=== PATIENT | male | born 1950 | race Caucasian/White ===

== ENCOUNTER 2019-01-25 08:50 | Outpatient (CLI) | payer BC ==
--- NOTE | 2019-01-25 10:45 | XRAY Report ---
Reason: PERSISTENT L HIP PAIN Procedure Date: 01/25/2019 Accession Number: [id number] / [id number] Procedure: XRN - Hip w/Pelvis 2-3V LT CPT Code: FULL RESULT: EXAM: LEFT HIP RADIOGRAPHY EXAM DATE: 01/25/2019 09:06 AM. CLINICAL HISTORY: Persistent left hip pain. COMPARISON: None. TECHNIQUE: 3 views. FINDINGS: Bones: Normal. No fractures or bone lesion. Joints: There is mild to moderate joint space loss with sclerosis and marginal osteophytosis, mildly greater on the left when compared to the right. No subluxation. Soft Tissues: Normal. No soft tissue swelling. IMPRESSION: Moderate left hip degenerative changes. RADIA
== END 2019-01-25 08:51 | disposition home or self-care (01) ==
LOC: DI.N 08:50
PROVIDERS: ATTEND Internal Medicine
DX: M16.12 Unilateral primary osteoarthritis, left hip (principal)

== ENCOUNTER 2019-10-09 11:08 | Outpatient (CLI) | payer BC ==
--- NOTE | 2019-10-09 12:57 | SLEEP CARE CONSULTATION ---
Information from patient questionnaire entered by Elidia Orozco. I have reviewed and concur with the information entered by Elidia Orozco. This document represents the service I personally performed and the decisions made by me, Austyn Ferrell MD, [facility]. History of Present Illness Reason for Visit: New patient, Previously diagnosed sleep apnea, sleep apnea on CPAP therapy Chief Complaint: reports: Other (new prescription for supplies) Duration of Symptoms: 10 years Usual bedtime: [id number] Time it takes to fall asleep: quickly Snores at night: Yes Observed to quit breathing while asleep: No Sleeps alone due to snoring: Yes Number of times waking at night: 1-3 Reasons for waking at night: reports: Bathroom Toss, Turn, or Twitch while sleeping: Yes Recalls having dreams: Yes Usually gets out of bed at: [id number] Feels refreshed in the morning: No Morning headache: No Sleepy or fatigued during the day: Yes Ever fallen asleep while driving: No Takes day naps: Yes Dreams during day naps: No Prior sleep studies: Yes Year and Where: 2009 Sleep Lab [facility] Additional HPI information: I had the pleasure of seeing Mr. Gregg today regarding obstructive sleep apnea. As you know, he is a 65 year old gentleman who was diagnosed with mild obstructive sleep apnea (AHI was 8) in [place], [place] in 2009. He was here in 2016 and I ordered him a new machine set 7-10 cmH2O. He continues to use it every night but not all night. The compliance data show usage in 178 out of the past 180 nights, averaging 3.6 hours a night. The residual AHI is 2.9 and average air leak is 16 seconds a night. He wears a Respironics DreamWear nasal cushion mask. He thinks the treatment helps with his headache in the morning. [facility] is his durable medical supplier but has not gotten supplies for a while and would like to switch to a different company. CPAP Compliance Data - Data Reviewed with Patient Average duration of nightly device use: 3h 39m Compliance rate %: 37.2 Current pressure setting (cmH2O): 7-10 Humidity settin Heated hose settin Average residual AHI: 2.9 Average large leak: 16s Subjective Initial Gage Sleepiness Scale score: 7 Past Medical History Past Medical History: reports: Arrythmia, Other (parkinsons, pacemaker) Social History The patient's occupation is retired. Patient is and lives in [place]. Have you smoked in the past 12 months: No Alcohol use: Yes Alcohol amount and frequency: 1, 1-2 weeks Caffeine use: Yes Caffeine amount and frequency: 1-2 cups/daily Family History Family history of sleep disordered breathing: No Allergies and Home Medications Drug allergies reviewed: Yes (NKDA) Home medication list reviewed: Yes (Ropinirole, metformin, simvastatin, melatonin, vitamins) Review of Systems Weight gain over past 5 years: 20 Cardiovascular: reports: other (pacemaker) Respiratory: denies: shortness of breath, wheeze, sputum production, chronic cough, other Gastrointestinal: denies: heartburn, difficulty swallowing, nausea, vomitting, diarrhea, abdominal pain, other Urinary: denies: incontinence, frequency, urgency, impotence, other Neurological: reports: other (parkinsons) Psychiatric: denies: Attention Deficit Hyperactivity, anxiety, depression, mood disorder, claustrophobia, other Ear/Nose/Throat: denies: nasal congestion, sinus problems, nose bleeds, dry mouth/throat, hoarseness, injury to nose, tonsillectomy, wisdom teeth removed, other Endocrine: denies: thyroid disease, history of goiter, sluggishness, too hot or cold, excessive thirst, increased appetite, increased urination, unexplained weakness, other Musculoskeletal: reports: other (hip replacement) Immunologic: denies: sneezing, rash, itching, allergies to food or environment, other Physical Exam Height: 6 ft 4 in Weight: 245 lb (Physical exam is deferred due to the Coronavirus epidemic) Body Mass Index: 29.8 BMI Classification: Overweight Impression and Plan IMPRESSION: 1. Obstructive Sleep Apnea-Hypopnea Syndrome, mild, as previously diagnosed. The patient has fairly good treatment compliance. The effectiveness of the treatment is unknown. His machine is old enough to be replaced. He should also try newer nasal pillows and masks. The patient would like to switch durable medical equipment supplier. He would like to try [facility] in [place], [place]. Plan: 1. Prescription made for supplies so that he may switch durable medical supplier. 2. Order a home sleep apnea test (HSAT) to see if he still has the mild sleep- disordered breathing. 3. Attempt to some lose weight. 4. Return for follow up after the test. I spent 100% of this visit face to face with the patient with greater than 50% of this was spent time counseling the patient and coordination of care.
== END 2019-10-09 11:09 | disposition home or self-care (01) ==
LOC: SC 11:08
PROVIDERS: ATTEND Internal Medicine Pulmonary Disease
DX: G47.33 Obstructive sleep apnea (adult) (pediatric) (principal); E66.3 Overweight; Z68.29 Body mass index [BMI] 29.0-29.9, adult
CPT/HCPCS: 99203; 99212

== ENCOUNTER 2019-10-20 19:30 | Outpatient (CLI) | payer BC | END 2019-10-20 23:59 | LOC: SC 19:30 | PROVIDERS: ATTEND Internal Medicine Pulmonary Disease | DX: G47.33 Obstructive sleep apnea (adult) (pediatric) (principal) | CPT/HCPCS: 95806 ==

== ENCOUNTER 2019-11-14 16:24 | Outpatient (CLI) | payer BC ==
--- NOTE | 2019-11-14 12:17 | SLEEP CARE CONSULTATION ---
Information from patient questionnaire entered by Elidia Orozco. I have reviewed and concur with the information entered by Elidia Orozco. This document represents the service I personally performed and the decisions made by me, Mariajose Lopez RN, MSN, [employer]. History of Present Illness Service Date and Time: 11/14/2019 1100 Initial [place] Sleepiness Scale score: 7 Additional HPI information: LEONID GREGG returns via telemed visit for follow up and results of the recently performed home sleep study. I reviewed the sleep study results and then explained the pathophysiology behind obstructive sleep apnea. We then spent quite a bit of time discussing different treatment options. For mild obstructive sleep apnea, surgery and oral appliance are alternatives to nasal CPAP therapy but in moderate or severe cases, nasal CPAP is the most effective and reliable treatment. Because apnea is primarily in supine position, then positional management therapy could be effective but due to his arrhythmia, CPAP is the best method of treatment. I reviewed the impact of weight changes on sleep apnea and strongly recommended losing weight. After some discussion, the patient opted to continue with the nasal CPAP therapy.Patient is currently using CPAP at [id number]. No compliance data available at this visit. Review of sleep history Patient sleeps well for 3-4 hours but has difficulty returning to sleep with CPAP as partially rested. He is more aware of the headgear and air breathing but not uncomfortable just makes it hard to fall back to sleep. In addition the hose gets in way of sleep as he is tossing and turning to try to get comfortable to sleep. He will then remove mask so can fall back to sleep. He wears Resmed nasal mask with headgear on top of head. He just updated his mask cushions today with transfer visit to [facility]. ] Sleep Study - Results Polysomnography/Home Sleep Study results: SLEEP TIME AND EFFICIENCY: The sleep study recording began at 11:40:49 PM and ended at 05:29:10 AM. Total recording time was 348.4 minutes. The total sleep time was 308.5 minutes. The sleep efficiency was 88.6 percent. The patient spent 153.4 minutes supine, and spent 155.1 minutes non-supine. The patients own estimate of sleep time was 5.00 hours. RESPIRATORY DATA: The AHI in this report is indexed to sleep time based on actigraphy. The AASM defines this as RENNY. The AHI on this type 3 Home Sleep Study may understate the AHI determined on a type 1 or 2 study, since EEG is not monitored resulting in the inability to score non-desaturating hypopneas. Based on 4% Calculation: The AHI4% calculation of 23.5 per hour of recording time was based on a total of 115 scored apneas and 6 scored hypopneas with 4% desaturations. Supine AHI4%: 44.6 per hour. Non-supine AHI4%: 2.7 per hour. Oxygen Summary: Patient's baseline O2 saturation was 98.2 %. The patient spent 0.1 minutes at an oxygen saturation less than 90%, and 0.0 minutes less than 85%. The desaturation index was 2.3 events per hour sleep time. The lowest saturation was 80.7 %. SNORING: The percent of the study time spent snoring was 4.4 %. The Snoring Count was 452 . The Snoring Index was Patient Name: Leonid Gregg Study Date: 10/20/2019 : 1950 Page 2 of 7 87.9 . PULSE RATE REVIEW: The mean heart rate was 61 beats per minute. The rate ranged from a low of 51 to a high of 90 beats per minute. DIAGNOSIS CODE: Ostructive sleep apnea G47.33, moderate, occurring almost exclusively during supine sleep. Milddesaturations were noted. Allergies and Home Medications Home medication list reviewed: Yes (no changes) Review of Systems Review of systems same as previous: Yes Physical Exam Height: 6 ft 4 in Weight: 245 lb (home scale) Body Mass Index: 29.8 BMI Classification: Overweight Impression and Plan 1. Obstructive Sleep Apnea-Hypopnea Syndrome, moderate, with lowest oxygen saturation of 80.7%. As reviewed in patient consultation visit in October, patient had a HST to evaluate apnea severity after gaining weight of 25 pounds. He was originally diagnosed in 2009 in [place] with mild apnea. I explained how his weight gain has increased his apnea severity and how it can also affect his CPAP pressure requirements. No compliance report was available for this visit. Currently patient is using CPAP nightly but only for about 3.6 hours or so a night. He states he is able to go to sleep initially when he starts his CPAP use but after waking in a few hours to use the bathroom, he is unable to return to sleep with his CPAP so will take it off. He also takes Melatonin 3mg at HS. Further questioning revealed difficulty returning to sleep he felt was due to feeling somewhat rested now and increased awareness of the CPAP headgear and air pressure. Though this was not uncomfortable just bothersome. In addition, the hose gets in way of sleep as he tosses and turns to get comfortable. Thus I advised him to consider use of a hose villela that can be bought online with rationale of how it is used and benefit. In addition, I explained the importance of using his CPAP all through the night to obtain maximum benefit of treatment such as improving sleep quality and refreshment as well as reducing health risks associated with untreated or not adequately treated apnea such as hypertension, cardiac arrhythmia, heart disease and stroke. I will have him complete a sleep diary to see what else might be affecting his sleep with CPAP and follow up in one month. The visit type will be dependent upon recommendations to reduce risk of COVID virus exposure. Until then he will try the above measures discussed. He states he will also turn try harder to return to sleep with CPAP in place. I also advised to consider some deep breathing exercises to help him relax to return to sleep. If unable to sleep with CPAP the remainder of the night, he is advised to avoid supine sleep with pillow positioning as his apnea is severe in supine position. Copy of his sleep study and the 2 week sleep diary will be sent to patient. * Continue Nasal auto CPAP therapy, pressure at 7-10 cm H2O. * Implement measures to return to sleep. * Use CPAP with all sleep. * complete 2 week sleep diary. * Schedule follow up in one month. Visit Type: Telehealth Phone (to minimize risk of COVOD-19 exposure, the patient agreed to a telehealth phone visit and to bill his insurance for the visit.) Other Participants: Spouse/Significant Other Location of Provider: Home Patient agrees and consents to this telehealth visit type: Yes Time Spent with Patient (minutes): 30 Provider Statement: I spent 100% of the Telehealth Phone Call with the patient with greater than 50% spent counseling the patient and coordination of care.
== END 2019-11-14 16:25 | disposition home or self-care (01) ==
LOC: SC 16:24
PROVIDERS: ATTEND Nurse Practitioner Family
DX: G47.33 Obstructive sleep apnea (adult) (pediatric) (principal); E66.3 Overweight; Z68.29 Body mass index [BMI] 29.0-29.9, adult

== ENCOUNTER 2019-12-20 16:31 | Outpatient (CLI) | payer BC ==
--- NOTE | 2019-12-20 12:18 | SLEEP CARE CONSULTATION ---
Information from patient questionnaire entered by Elida Dee. I have reviewed and concur with the information entered by Elida Dee. This document represents the service I personally performed and the decisions made by me, Mariajose Lopez, RN, MSN, WOUND TREATMENT RN. History of Present Illness Service Date and Time: 12/20/2019 1631 Previous diagnosis: Moderate, Obstructive Sleep Apnea-Hypopnea Syndrome AHI: 23.5 (in 2019) Reason for follow up: one month Equipment type: CPAP Equipment obtained from: [facility] (getting supplies as needed -after transfer recently) Mask style: Nasal pillows Backup mask available: No (keep current mask when replaced as a spare) Last cushion change: Subjective Missed days of use due to: reports: mask issues, other (discomfort of left hip the past year, better since replacement ) Patient concerns: reports: mask leak noise (rarely now), other (he continues to have problems going back to sleep after using it about 4 hours due to supersensitivity of mask. Though new mask much better). denies: aerophagia, mask discomfort (annoying ), air blowing in eyes, condensation in mask/hose, nasal congestion, dry mouth, nose, throat (only if runs out of water ), epistaxis Observed to snore while using device: Yes (enough for spouse to leave room unaware if with or without ) Current pressure setting perceived as: comfortable On therapy, patient: reports: sleeping better (first 4 or so hours of sleep then takes off mask due it bothering him ), awakening more refreshed, being more awake and alert during the day, more rested overall. denies: drowsiness while driving Initial [place] Sleepiness Scale score: 8 (in 2016) Allergies and Home Medications Home medication list reviewed: No (no changes ) Review of Systems Review of systems same as previous: No (August 2019 - left hip replacement) Physical Exam Height: 6 ft 4 in Weight: 242 lb Body Mass Index: 29.4 BMI Classification: Overweight Impression and Plan 1. Obstructive Sleep Apnea-Hypopnea Syndrome, moderate, with unknown treatment compliance and unknown apnea control as no data available as no modem access. The patient was instructed to contact office staff to set up time to download his card so I can review his use and treatment effectiveness. He agreed with plan. On CPAP therapy, the patient has better sleep quality and is more rested overall. However, he is unable to use CPAP through the night due to mask hypersensitivity. Thus he wondering if an oral appliance might be more helpful. I explained that an oral appliance ( advanced mandibular device) can be used for mild to moderate apnea. CPAP is gold standard if hypertension, cardiac disease or stroke. He states he has a pacemaker for bradycardia only. After some discussion, the patient opted to go with the oral appliance. Patient advised to check also with his junior administrative assistant before proceeding with oral appliance process and agreed with plan. If he proceeds with oral appliance, he is advised to use CPAP until able to use an oral appliance. [facility] non PAP treatment patient education will be sent to patient with list of accredited dentists and one non-accredited dentist in [facility] to call for a consult. A prescription will also be written to start process. He is to check insurance to see if oral appliance is covered. Some dentists do not take Medicare but he states his Medicare is secondary. Once he recieves the oral appliance, I will have patient follow up in 3 months to check effectiveness of treatment. If reduction of symptoms and comfortable with treatment, a polysomnography will be ordered using the oral appliance to check efficacy of treatment. Until he proceeds with oral appliance, I will increase his autoCPAP range for snore. He is to contact me if does not resolve snore or uncomfortable. He is also to continue with weight loss plan with rationale discussed to reduce apnea risk and overall health risks associated with obesity. Patient's apnea severity and rationale for treatment to reduce apnea, improve sleep quality and reduce cardiovascular and cerebrovascular events was reviewed. * Obtain complaince download * Change auto CPAP pressure to 8-12 cmH2O * prescription oral appliance * Notify me if snoring with mask or feeling that the pressure is too much or too little * continue to lose weight * Call this office if any problems using CPAP * Return for follow up determined by compliance , or sooner if concerns arise Visit Type: Telehealth Phone (to reduce risk of Covid 19 exposure) Patient Location: Home Location of Provider: Home Patient agrees and consents to this telehealth visit type: Yes Patient agrees to have their insurance billed: Yes Time Spent with Patient (minutes): 30 Provider Statement: I spent 100% of the Telehealth Phone Call with the patient with greater than 50% spent counseling the patient and coordination of care.
== END 2019-12-20 16:32 | disposition home or self-care (01) ==
LOC: SC 16:31
PROVIDERS: ATTEND Nurse Practitioner Family
DX: G47.33 Obstructive sleep apnea (adult) (pediatric) (principal); E66.3 Overweight; Z68.29 Body mass index [BMI] 29.0-29.9, adult

== ENCOUNTER 2020-02-21 09:26 | Outpatient (CLI) | payer BC, MEDICARE ==
[2020-02-21 10:26] VITALS: BP 120/70
--- NOTE | 2020-02-21 10:26 | SLEEP CARE CONSULTATION ---
Information from patient questionnaire entered by Elidia Orozco. I have reviewed and concur with the information entered by Elidia Orozco. This document represents the service I personally performed and the decisions made by me, Mariajose Lopez, RN, MSN, [employer] TECHNICIAN. History of Present Illness Service Date and Time: 02/21/2020925 Previous diagnosis: Moderate, Obstructive Sleep Apnea-Hypopnea Syndrome AHI: 23.5 Reason for follow up: other (2 month with pressure change) Equipment type: CPAP Equipment obtained from: [facility] (getting supplies as needed.) Mask style: Nasal pillows Backup mask available: No (keep current mask as spare ) HPI additional information: The pressure was changed with no difference noted by patient in use. 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 He has been using CPAP for about 11 years and never able to sleep more than 3-4 hours with CPAP as mask just annoying no matter what style he has tried. Current mask style best so far. CPAP Compliance Data - Data Reviewed with Patient Average duration of nightly device use: 3h 8m Compliance rate %: 11.7 (30 days = 3.3%) Current pressure setting (cmH2O): 8-12 Humidity settin Heated hose settin Average residual AHI: 4.3 (90% 9.4cmH20 / 8.5cmH20 average) Average large leak: 19s Subjective Patient concerns: denies: aerophagia, mask discomfort, air blowing in eyes, mask leak noise, condensation in mask/hose, nasal congestion, dry mouth, nose, throat, epistaxis, other Observed to snore while using device: No Current pressure setting perceived as: comfortable On therapy, patient: reports: sleeping better, more rested overall (But unable to fall back to sleep with it after use of 3-4 hours due to annoyance of mask ) Initial [place] Sleepiness Scale score: 8 (in 2016) Allergies and Home Medications Known drug allergies: No Home medication list reviewed: No (no changes ) Review of Systems Review of systems same as previous: Yes Physical Exam Blood Pressure: 120/70 Cuff size: regular Heart Rate: 61 O2 Saturation: 97 Height: 6 ft 4 in Weight: 235 lb 12.8 oz Body Mass Index: 28.7 BMI Classification: Overweight Impression and Plan 1. Obstructive Sleep Apnea-Hypopnea Syndrome, moderate, with fair treatment compliance and good apnea control. On CPAP therapy, the patient has better sleep quality and is more rested overall but unable tolerate mask more than 4 hours.The change in pressure did not assist his comfort in using CPAP longer period of time. Thus he has pursued trying an oral appliance as discussed last visit and has an appointment set up at end of month for a consultation. I reviewed his past sleep study. Since patient has more severe apnea in supine position, patient advised to avoid supine sleep with pillow positioning if unable to use CPAP the last half of night or while ill or if without electricity to reduce apnea risk. I also discussed other positional management belts that can be bought online. When he gets the oral appliance, he is to contact office so he can schedule a 3 month visit to check effectiveness of device. He is again reminded to discuss his plan of using an oral appliance in place of his CPAP with his cylinder head assembler as there is not method to check effectiveness except with a sleep study except for symptom management. However, since he is unable to tolerate CPAP half of his sleep, this may be a better method of treatment if he is able to tolerate use with all sleep if it is shown to reduce his apnea when t ested with polysomnography. Patient's apnea severity and rationale for treatment to reduce apnea, improve sleep quality and reduce cardiovascular and cerebrovascular events was reviewed. * Continue auto CPAP pressure at 8-12 cmH2O * Avoid supine sleep if unable to use CPAP * Notify me if snoring with mask or feeling that the pressure is too much or too little * Attempt to lose weight * Call this office if any problems using CPAP * Return for follow up in 3 months after oral appliance , or sooner if concerns arise Visit Type: In Office Time Spent with Patient (minutes): 35 Provider Statement: I spent 100% of the Face to Face Visit with the patient with greater than 50% spent counseling the patient and coordination of care.
== END 2020-02-21 09:27 | disposition home or self-care (01) ==
LOC: SC 09:26
PROVIDERS: ATTEND Nurse Practitioner Family
DX: G47.33 Obstructive sleep apnea (adult) (pediatric) (principal); E66.3 Overweight; Z68.28 Body mass index [BMI] 28.0-28.9, adult
CPT/HCPCS: 99212; 99214

== ENCOUNTER 2020-08-04 13:10 | Outpatient (CLI) | payer BC, MEDICARE ==
--- NOTE | 2020-08-04 11:18 | SLEEP CARE CONSULTATION ---
Information from patient questionnaire entered by Elida Dee. I have reviewed and concur with the information entered by Elida Dee. This document represents the service I personally performed and the decisions made by me, Austyn Ferrell MD, [facility]. History of Present Illness Service Date and Time: 08/04/2020 0970 Previous diagnosis: Moderate, Obstructive Sleep Apnea-Hypopnea Syndrome AHI: 23.5 Reason for follow up: other (5 month with Oral appliance) Equipment type: CPAP Equipment obtained from: [employer] (getting supplies as needed.) Mask style: Nasal pillows Prior sleep studies: Yes Year and Where: 2009 [facility] additional information: To minimize the risk of COVID-19 exposure, the patient has requested and consented to this video telemedicine visit. The patient also agrees to having his insurance billed. HPI: Mr. Gregg was diagnosed to have mild obstructive sleep apnea-hypopnea syndrome and returns today for follow up of oral appliance therapy. The patient went to [facility] and was fitted with oral appliance. He has been wearing it nightly for the past 4 months. He reports feeling better during the day and no headaches in the morning. He is not sure if he snores because he continues to sleep in a separate room. He reports no change in his bite. Subjective Initial [place] Sleepiness Scale score: 8 (in 2016) Allergies and Home Medications Drug allergies reviewed: Yes Home medication list reviewed: Yes Review of Systems Review of systems same as previous: Yes Physical Exam Height: 6 ft 4 in Impression and Plan IMPRESSION: 1. Obstructive Sleep Apnea-Hypopnea Syndrome, mild, with the patient doing well on the oral appliance therapy. He reports some improvement. No side effect. We will go ahead with a home sleep apnea test (HSAT) to evaluate the effectiveness of the treatment. PLAN: 1. Schedule a home sleep apnea test (HSAT). 2. Return for a follow up after the test. Visit Type: Telehealth Video Video Type: [employer] Patient Location: Home Location of Provider: Office Patient agrees and consents to this telehealth visit type: Yes Patient agrees to have their insurance billed: Yes Time Spent with Patient (minutes): 15 Provider Statement: I spent 100% of the Telehealth Video Call with the patient with greater than 50% spent counseling the patient and coordination of care.
== END 2020-08-04 13:11 | disposition home or self-care (01) ==
LOC: SC 13:10
PROVIDERS: ATTEND Internal Medicine Pulmonary Disease
DX: G47.33 Obstructive sleep apnea (adult) (pediatric) (principal)

== ENCOUNTER 2020-08-26 08:00 | Outpatient (CLI) | payer BC, MEDICARE | END 2020-08-26 08:01 | disposition home or self-care (01) | LOC: SC 08:00 | PROVIDERS: ATTEND Internal Medicine Pulmonary Disease | DX: G47.33 Obstructive sleep apnea (adult) (pediatric) (principal) | CPT/HCPCS: 95806 ==

== ENCOUNTER 2020-09-11 08:01 | Outpatient (CLI) | payer BC, MEDICARE ==
--- NOTE | 2020-09-11 08:27 | SLEEP CARE CONSULTATION ---
Information from patient questionnaire entered by Elida Dee. I have reviewed and concur with the information entered by Elida Dee. This document represents the service I personally performed and the decisions made by , Paula Montejo ARNP. History of Present Illness Service Date and Time: 09/11/2020 08 Initial [place] Sleepiness Scale score: 8 (in 2016) Current [place] Sleepiness Scale score: 9 Additional HPI information: MARKEL MERCADO returns via Telehealth visit for follow up and results of the recently performed home sleep study. I explained the pathophysiology behind obstructive sleep apnea. Patient has been using an oral appliance and this study was to evaluate effectiveness of treatment. He was originally diagnosed with moderate sleep apnea with an average AHI of 23.5. This present study shows an average AHI of 5.9 mainly non-supine since he did not sleep supine during the study. His fabricio oxygen saturation was 92%. Sleep Study - Results Type of Sleep Study: Home sleep study Prior sleep studies: Yes Year and Where: 2009 Sleep Lab [facility] Polysomnography/Home Sleep Study results: Physician Impression: The quality of the study is good. The length of the study is adequate (> 240 minutes). Please also see the tabulated and graphic data. 1. Obstructive Sleep Apnea-Hypopnea (ICD-10 G47.33), mild, with an AHI of 5.9/hr and fabricio SaO2 of 92%. During the study, the patient had 34 apneas (34 obstructive, 0 central, 0 mixed) and 2 hypopneas. The longest episode lasted 53.5 seconds. The patient did not sleep supine during this study (supine AHI was 0.0 and non-supine, 5.89). Allergies and Home Medications Drug allergies reviewed: Yes (NKDA) Home medication list reviewed: Yes (tamulosin hydrochloride for prostate; trihexaphenadil hydrochloride) Review of Systems Review of systems same as previous: Yes (no changes) Physical Exam Vital signs obtained and entered by: Telehealth visit to reduce exposure during covid pandemic Height: 6 ft 4 in Impression and Plan 1. Obstructive Sleep Apnea-Hypopnea Syndrome, mild, with lowest oxygen saturation of 92% with oral appliance in place during HST. Patient has history of arrythmia. He feels he is sleeping better without the CPAP machine because he does not have to fight with the hose of the machine. He used to wake up in the night and not be able to go back to sleep with the mask on and would take it off. He feels he gets up to 5 hours of good sleep and is feeling more rested with the oral appliance in place. He feels the sleep is better quality. His [place] scale is 9/24 today. I advised him to follow up with dentist and adjust his appliance a little to help reduce the AHI from 5.9. He is to follow up in 3 months to see how he is continuing response to therapy. He and voiced understanding. * Continue oral appliance therapy * Attempt to lose weight. * Avoid alcohol consumption near bedtime. * Avoid supine sleep. * The patient is again cautioned about driving until sleepiness completely resolves. * Return in 3 months to assess response to therapy at that time. Counseling Topics: Weight loss health impact Visit Type: Telehealth Video Video Type: VSee Patient Location: Home Other Participants: Spouse/Significant Other Location of Provider: Office Patient agrees and consents to this telehealth visit type: Yes Patient agrees to have their insurance billed: Yes Time Spent with Patient (minutes): 25 Provider Statement: I spent 100% of the Telehealth Video Call with the patient with greater than 50% spent counseling the patient and coordination of care.
== END 2020-09-11 08:02 | disposition home or self-care (01) ==
LOC: SC 08:01
PROVIDERS: ATTEND Nurse Practitioner Family
DX: G47.33 Obstructive sleep apnea (adult) (pediatric) (principal)

== ENCOUNTER 2020-12-10 08:30 | Outpatient (CLI) | payer BC, MEDICARE ==
--- NOTE | 2020-12-10 08:18 | SLEEP CARE CONSULTATION ---
Information from patient questionnaire entered by Elida Dee. I have reviewed and concur with the information entered by Elida Dee. This document represents the service I personally performed and the decisions made by , Paula Montejo ARNP. History of Present Illness Service Date and Time: 12/10/2020 0800 Previous diagnosis: Moderate, Obstructive Sleep Apnea-Hypopnea Syndrome AHI: 23.5 (in 2009) Reason for follow up: three month (with oral appliance) Equipment type: CPAP Equipment obtained from: [employer] Mask style: Nasal pillows Prior sleep studies: Yes Year and Where: 2009 - Sleep Lab [facility] Type of Sleep Study: Home sleep study HPI additional information: MARKEL MERCADO was diagnosed to have moderate, AHI 23.5, obstructive sleep apnea- hypopnea syndrome and returns via Telehealth visit today for oral appliance therapy three month follow-up. CPAP Compliance Data Compliance data discussion: He is using the oral device every night, 30 out of last 30 days. He sleeps on average 5-6 hours. He did follow up with the dentist after last visit for an adjustment and has another follow up coming up. Subjective Patient concerns: reports: other (no concerns with oral device use, it is comfortable) On therapy, patient: reports: sleeping better, awakening more refreshed, being more awake and alert during the day, more rested overall. denies: drowsiness while driving Initial [place] Sleepiness Scale score: 8 (in 2015) Current [place] Sleepiness Scale score: 9 Allergies and Home Medications Home medication list reviewed: Yes (no new meds) Review of Systems Review of systems same as previous: Yes (no changes) Physical Exam Vital signs obtained and entered by: Telehealth visit to reduce exposure during Covid pandemic Height: 6 ft 4 in Weight: 232 lb (patient weigh at home) Body Mass Index: 28.2 BMI Classification: Overweight Impression and Plan 1. Obstructive Sleep Apnea-Hypopnea Syndrome, moderate. On oral appliance therapy, the patient states he is feeling good and more rested overall. He is tolerating the oral appliance well and states it is comfortable. He is wearing his oral appliance every night for an average of 5-6 hours per patient report. His [place] is 9/24 today. He wishes to continue oral appliance therapy. He has a follow up with his dentist coming up soon. He denies daytime sleepiness or drowsy driving issues. Patient's apnea severity and rationale for treatment to reduce apnea, improve sleep quality and reduce cardiovascular and cerebrovascular events was reviewed. Patient has history of heart arrhythmia. * Continue oral appliance therapy * Attempt to lose weight * Call this office if any problems * Return for follow up in 6 months, or sooner if concerns arise Counseling Topics: Weight loss health impact Visit Type: Telehealth Phone Video Type: VSee Patient Location: Home Location of Provider: Office Patient agrees and consents to this telehealth visit type: Yes Patient agrees to have their insurance billed: Yes Time Spent with Patient (minutes): 17 Provider Statement: I spent 100% of the Telehealth Phone Call with the patient with greater than 50% spent counseling the patient and coordination of care.
== END 2020-12-10 08:31 | disposition home or self-care (01) ==
LOC: SC 08:30
PROVIDERS: ATTEND Nurse Practitioner Family
DX: G47.33 Obstructive sleep apnea (adult) (pediatric) (principal); E66.3 Overweight; Z68.28 Body mass index [BMI] 28.0-28.9, adult